=== PATIENT | female | born 1995 | race Caucasian/White ===

== ENCOUNTER 2020-10-14 19:51 | Emergency (ER) | payer MEDICAID ==
[~2020-10-14] VITALS: Ht 154.9 cm; Wt 53.5 kg
[2020-10-14 20:03] VITALS: Ht 154.9 cm; Wt 53.5 kg
[2020-10-14 21:47] VITALS: BP 108/82
== END 2020-10-14 21:47 | disposition home or self-care (01) ==
LOC: ED 19:51
DX: S39.012A Strain of muscle, fascia and tendon of lower back, initial encounter (principal); W18.11XA Fall from or off toilet without subsequent striking against object, initial encounter; Y93.89 Activity, other specified; Y92.89 Other specified places as the place of occurrence of the external cause; Y99.8 Other external cause status
CPT/HCPCS: Q0162